=== PATIENT | male | born 1990 | race Caucasian/White ===

== ENCOUNTER 2017-02-16 11:41 | Emergency (ER) | payer MEDICAID ==
[~2017-02-16] VITALS: Ht 175.3 cm; Wt 115.0 kg
[2017-02-16] MEDS ORDERED: ONDANSETRON HCL 4MG/2ML VIAL IV STA (11:53)
[2017-02-16] MEDS ORDERED: SODIUM CHLORIDE 0.9% 1,000 ML IV ONE ×2 (11:53→13:42)
[2017-02-16] MEDS ORDERED: MORPHINE SULFATE 4 MG/ML CPJ (NOT FOR IM USE) IV STA (11:53)
[2017-02-16 12:18] LABS: HEMATOCRIT. 46.1 % (42.0-52.0); HEMOGLOBIN. 15.8 g/dL (14.0-18.0); MEAN CORPUSCULAR HEMOGLOBIN 30.4 pg (28.0-32.0); MEAN CORPUSCULAR VOLUME 88.8 fL (80.0-94.0); PLATELET 232 x1000/uL (130-400); RED BLOOD CELL COUNT 5.19 mill/uL (4.7-6.1); RED CELL DISTRIBUTION WIDTH 12.7 % (11.6-14.6)
[2017-02-16 12:27] LABS: PARTIAL THROMBOPLASTIN TIME 26.8 sec (24.0-34.0); PROTHROMBIN TIME 10.6 sec
[2017-02-16 12:33] LABS: CARBON DIOXIDE 24 mEq/L (21-32); CHLORIDE 108 mEq/L (98-107)
[2017-02-16] MEDS ORDERED: IOHEXOL-300 100 ML BOTTLE ONE (12:56)
[2017-02-16] MEDS ORDERED: SODIUM CHLORIDE 0.9% 10ML VIAL ONE (12:56)
[2017-02-16 12:58] LABS: PLATELET ESTIMATE NORMAL
[2017-02-16] MEDS ORDERED: KETOROLAC 30MG/ML VIAL IV ONE (13:45)
[2017-02-16] MEDS ORDERED: ONDANSETRON HCL 4MG/2ML VIAL IV ONE (13:45)
[2017-02-16 16:01] VITALS: BP 109/74
[2017-02-16 16:19] LABS: CLARITY URINE CLEAR (CLEAR); COLOR URINE YELLOW (YELLOW); GLUCOSE URINE NEGATIVE (NEGATIVE); KETONES URINE NEGATIVE (NEGATIVE); LEUKOCYTE ESTERASE URINE NEGATIVE (NEGATIVE); NITRITE URINE NEGATIVE (NEGATIVE); OCCULT BLOOD URINE NEGATIVE (NEGATIVE); PH URINE 5.5 (4.5-8.0); PROTEIN URINE NEGATIVE (NEGATIVE); SPECIFIC GRAVITY URINE 1.075 (1.005-1.030); UROBILINOGEN URINE 0.2 E.U./dL (0.2-1.0)
== END 2017-02-16 16:28 | disposition short-term general hospital (02) ==
LOC: ER 12:02 → CANBEDREQ 16:07 → ER 16:28
DX: K65.9 Peritonitis, unspecified (principal); R65.10 Systemic inflammatory response syndrome (SIRS) of non-infectious origin without acute organ dysfunction; R73.9 Hyperglycemia, unspecified; R11.10 Vomiting, unspecified
CPT/HCPCS: 36415; 71010; 74177; 76705; 80053; 81003; 83605; 83690; 85025; 85610; 85730; 87040; 87086; 93005; 96361; 96374; 96375; 96376; 99285; A4216; J2270; J2405; J7030; Q9967; Z7610